=== PATIENT | female | born 1995 | race American Indian/Alaskan Native ===

== ENCOUNTER 2020-12-22 22:08 | Emergency (ER) | payer MEDICAID ==
[2020-12-22 22:26] VITALS: BP 137/74
[2020-12-22 23:54] LABS: Bilirubin,Urine NEG (Negative); Blood,Urine NEG (Negative); Color,Urine Yellow (Yellow); Mucus,Urine 2+ /HPF
[2020-12-22 23:57] LABS: HCG Qualitative,Urine Negative (Negative)
--- NOTE | 2020-12-23 00:26 | Emergency Department Report ---
ED General Adult HPI - General Chief complaint: Back Pain/Injury Stated complaint: BACK PAINS/MISSED PERIODS Time Seen by Provider: 12/22/20 22:32 Source: patient Mode of arrival: Ambulatory Limitations: No Limitations - History of Present Illness Initial comments: 25-year-old -[place] female patient presents with complaints of low back pain intermittently x3 weeks and possible . Patient states she has not had a menstrual cycle since October 2020. She denies any vaginal discharge, dyspareunia, dysuria/hematuria/urinary frequency, or abdominal pain. Patient states that her back pain has been coming and going for 3 weeks, however became constant after falling on her back a few days ago. She denies any numbness/tingling/weakness in her legs, loss of bladder/bowel control, or difficulty with ambulation. She rates her current pain as a 10/10 in severity and states Tylenol 3 is not helping. No prior medical history per patient or history of cancer. - Related Data Previous Rx's Medication Instructions Recorded Last Taken Type Diclofenac Sodium 75 mg PO BID PRN #14 tablet. 12/23/20 Unknown Rx methocarbamoL [Methocarbamol] 1,500 mg PO TID PRN #24 tablet 12/23/20 Unknown Rx Allergies Allergy/AdvReac Type Severity Reaction Status Date / Time Penicillins Allergy Unknown Verified 12/23/20 01:16 ED Review of Systems ROS: Stated complaint: BACK PAINS/MISSED PERIODS Other details as noted in HPI Constitutional: denies: chills, diaphoresis, fever, malaise, weakness Cardiovascular: denies: chest pain Endocrine: denies: excessive sweating Gastrointestinal: denies: abdominal pain, nausea, vomiting Genitourinary: denies: urgency, dysuria, frequency, hematuria, discharge, abnormal menses, dyspareunia Musculoskeletal: back pain. denies: joint swelling, arthralgia Skin: denies: change in color Neurological: denies: numbness, paresthesias, abnormal gait Hematological/Lymphatic: denies: swollen glands ED Past Medical Hx - Past Medical History Previous Medical History?: Yes Hx Asthma: Yes - Surgical History Past Surgical History?: Yes Additional Surgical History: tonsillectomy - Social History Smoking Status: Never Smoker Substance Use Type: None - Medications Home Medications: Home Medications Medication Instructions Recorded Confirmed Last Taken Type Diclofenac Sodium 75 mg PO BID PRN #14 tablet. 12/23/20 Unknown Rx methocarbamoL [Methocarbamol] 1,500 mg PO TID PRN #24 tablet 12/23/20 Unknown Rx ED Physical Exam - General Limitations: No Limitations General appearance: alert, in no apparent distress, obese - Head Head exam: Present: atraumatic, normocephalic - Eye Eye exam: Present: normal appearance. Absent: scleral icterus - Neck Neck exam: Present: normal inspection - Respiratory Respiratory exam: Absent: respiratory distress - Cardiovascular Cardiovascular Exam: Present: regular rate - GI/Abdominal GI/Abdominal exam: Present: soft. Absent: distended, tenderness, guarding, rebound, rigid - Extremities Exam Extremities exam: Present: full ROM - Back Exam Back exam: Present: full ROM - Neurological Exam Neurological exam: Present: alert, oriented X3, normal gait. Absent: motor sensory deficit - Expanded Neurological Exam Expanded Sensory exam: Lower Extremity Light Touch: Normal Motor strength exam: RUE: 5, LUE: 5, RLE: 5, LLE: 5 - Psychiatric Psychiatric exam: Present: normal affect, normal mood - Skin Skin exam: Present: warm, dry, intact, normal color. Absent: rash ED Course Vital Signs 12/22/20 22:24 Temperature 98.4 F Pulse Rate 83 Respiratory 14 Rate Blood Pressure 137/74 O2 Sat by Pulse 99 Oximetry ED Medical Decision Making - Radiology Data Radiology results: report reviewed interpreted by me: LUMBAR SPINE 2 VIEWS INDICATION / CLINICAL INFORMATION: pain after fall. COMPARISON: None available. FINDINGS: VERTEBRAE: No fracture. No significant malalignment. DISC SPACES:No significant abnormality. FACET JOINTS:No significant abnormality. ADDITIONAL FINDINGS: None. IMPRESSION: 1. No significant abnormality. - Medical Decision Making 25-year-old -[place] female patient presents with complaints of low back pain intermittently x3 weeks and possible . Patient states she has not had a menstrual cycle since October 2020. She denies any vaginal discharge, dyspareunia, dysuria/hematuria/urinary frequency, or abdominal pain. Patient states that her back pain has been coming and going for 3 weeks, however became constant after falling on her back a few days ago. She denies any numbness/tingling/weakness in her legs, loss of bladder/bowel control, or difficulty with ambulation. She rates her current pain as a 10/10 in severity and states Tylenol 3 is not helping. No prior medical history per patient or history of cancer. Neuro exam is normal. No abdominal pain noted on exam. She denies any red flag symptoms. UA is normal and test are negative. X-ray of the spine is negative for any acute abnormalities. Will treat for lumbar sprain with NSAIDs and muscle relaxers. Recommend icing and stretching at home and follow-up with primary care concerning back pain and missed menstrual cycles. Discussed strict return precautions in detail with patient who verbalizes understanding. Critical care attestation.: If time is entered above; I have spent that time in minutes in the direct care of this critically ill patient, excluding procedure time. ED Disposition Clinical Impression: Missed menses Lumbar sprain Qualifiers: Encounter type: initial encounter Qualified Code(s): S33.5XXA - Sprain of ligaments of lumbar spine, initial encounter Disposition: TO HOME OR SELFCARE Is pt being admited?: No Condition: Stable Instructions: Lumbar Sprain Prescriptions: Diclofenac Sodium 75 mg PO BID PRN #14 tablet. PRN Reason: pain methocarbamoL [Methocarbamol] 1,500 mg PO TID PRN #24 tablet PRN Reason: muscle spasm/tightness Referrals: [facility] [Provider Group] - 3-5 Days
--- NOTE | 2020-12-23 01:10 | XRay Report ---
LUMBAR SPINE 2 VIEWS INDICATION / CLINICAL INFORMATION: pain after fall. COMPARISON: None available. FINDINGS: VERTEBRAE: No fracture. No significant malalignment. DISC SPACES:No significant abnormality. FACET JOINTS:No significant abnormality. ADDITIONAL FINDINGS: None. IMPRESSION: 1. No significant abnormality. Signer Name: Arsenio Gilbert MD Signed: 12/23/2020 1:05 AM Workstation Name: [email or web address]
[2020-12-23] MEDS ORDERED: KETOROLAC 30 MG/1 ML INJ IM ONE (01:28)
== END 2020-12-23 01:39 | disposition home or self-care (01) ==
LOC: ED 22:08
DX: S33.5XXA Sprain of ligaments of lumbar spine, initial encounter (principal); N91.2 Amenorrhea, unspecified; J45.909 Unspecified asthma, uncomplicated; Z79.899 Other long term (current) drug therapy; Z88.0 Allergy status to penicillin; X58.XXXA Exposure to other specified factors, initial encounter; Y93.89 Activity, other specified; Y92.89 Other specified places as the place of occurrence of the external cause; Y99.8 Other external cause status
CPT/HCPCS: 72100; 81001; 81025; 96372; 99283; J1885